=== PATIENT | male | born 1995 | race Caucasian/White ===

== ENCOUNTER 2023-08-17 16:30 | Emergency (ER) | payer OTHER, SELFPAY ==
[2023-08-17 16:31] VITALS: BP 153/102; PULSE 60; RESP 18; TEMP 36.1; O2SAT 100; BMI 36.8
--- NOTE | 2023-08-17 20:41 | ED.VIS.DENTA ---
HPI History of Present Illness Chief Complaint: Dental Detail of Chief Complaint: Dental pain Informant: patient Narrative Narrative: Patient presents emergency department complaint dental pain for the last 2 days. Patient states that he has very poor dentition and has multiple broken and carried teeth. Complains of pain mostly to the left lower and upper dentition. He denies fevers or chills or sweats. Patient was seen at urgent care earlier and was prescribed amoxicillin but they did not give him anything for pain. Patient does not see a dentist. PFSH PFSH Medical History no medical history Home Medications ?Medication ?Instructions ?Recorded ?Last Taken ?Type hydrocodone-acetaminophen 5-325mg 1 tab PO Q4H PRN PRN Pain 2 days 08/17/23 Unknown Rx 5mg-325mg #15 TABLETS Allergy/AdvReac Type Severity Reaction Status Date / Time No Known Allergies Allergy Verified 08/17/23 16:32 ROS ROS ED Review of Systems ROS Unobtainable: other Constitutional Constitutional ED: Reports lethargy; Denies chills, fever(s), sweats or weight loss Eyes Eyes: Denies blurry vision, change in vision or diplopia ENT ENT ED: Reports other Details: Dental pain ; Denies rhinorrhea or sore throat Cardiovascular Cardiovascular: Denies chest pain, orthopnea or racing heartbeat Respiratory/Chest Respiratory/Chest: Denies cough, dyspnea, dyspnea on exertion, orthopnea or sputum Gastrointestinal Gastrointestinal: Denies abdominal pain, diarrhea, nausea or vomiting Genitourinary Genitourinary ED: Denies dysuria, hematuria or urinary frequency Musculoskeletal Musculoskeletal: Denies arthralgias, back pain, myalgias or neck pain Integumentary Denies abscess, Abrasions or rash Neurologic Neurologic: Denies headache(s) or weakness Psychiatric Psychiatric: Denies anxiety, depression or suicidal thoughts Endocrine Endocrinology: Denies polydipsia, polyphagia or polyuria Hematologic/Lymphatic Hematologic/Lymphatic: Denies easy bleeding, easy bruising or lymphadenopathy Allergic/Immunologic Allergic/Immunologic ED: Denies mouth swelling, tongue swelling or urticaria EXAM Physical Exam Const Vital Signs: 08/17/23 16:31 Temperature 96.9 F L Temperature Source Temporal Pulse Rate 60 Respiratory Rate 18 Blood Pressure 153/102 H Blood Pressure Mean 119 Pulse Ox 100 Oxygen Delivery Method Room Air Positive well nourished and well developed General Appearance ED: well developed and NAD HEENT Reports TM's clear and moist mucous membranes HEENT Narrative: Dentition-patient has very poor dentition with multiple broken teeth and caries. Teeth are worn down to gumline. Tenderness specifically over tooth #22. No gingival erythema or abscesses noted. There is no facial erythema or cellulitis. No trismus on exam. normocephalic and atraumatic; Negative for trauma or tenderness Tympanic Membrane ED: Yes TM's clear Eyes PERRL and EOMs intact bilaterally General Eye ED: Negative for pale conjunctiva or scleral icterus Neck no lymphadenopathy, supple and no JVD General: Negative for tenderness Chest Wall inspection of chest normal and palpation of chest normal Chest: Negative for tenderness Resp normal respiratory effort and clear to auscultation bilaterally Effort and Inspection: Negative for respiratory distress or pain with movement Auscultation: Negative for rhonchi, wheezes or diminished lung sounds Cardio regular rate, regular rhythm, S1 normal heart sound, S2 normal heart sound and no murmurs Peripheral Pulses: pulses 2+ throughout GI normal to inspection, nondistended, normoactive bowel sounds, soft to palpation, non-tender, non-distended and no masses Back/Spine no CVA tenderness and no thoracic nor lumbar tenderness Extremity normal to inspection General Extremety ED: Negative for edema General Extremity: Negative for edema Neuro oriented x3, CN's II-XII intact bilaterally, no sensory deficits noted and gait normal Sensorium / Orientation: awake, alert, oriented to person, oriented to place and oriented to time Motor Exam: strength 5/5 throughout and strength abnormal Psych mental status grossly normal Skin no rashes or lesions noted and no wounds MDM MDM MDM Narrative Medical decision making narrative: Patient presents with dental pain with multiple dental caries. Has started amoxicillin. I will give him a prescription for [place] for pain and refer to dentist. Discharge Plan Triage Chief Complaint: Dental ED Provider: Linh Heart Dx/Rx/DC Orders Clinical Impression: Pain, dental Instructions: ED Dental Pain Prescriptions: New hydrocodone-acetaminophen 5-325 mg tablet 1 tab PO Q4H PRN PRN (Reason: Pain) 2 Days Qty: 15 0RF Primary Care Provider: Care Physician,No Primary Referrals: Care Physician,No Primary [Primary Care Provider] - Activity Restrictions/Additional Instructions: See a dentist at the earliest possible time. Print Language: Malagasy Disposition Disposition: Home, Self Care
[2023-08-17] MEDS: HYDROcodone Bitartrate/Apap 5/325 Tablet PO (20:46)
[2023-08-17 21:06] VITALS: BP 141/83; PULSE 66; RESP 16; TEMP 36.4; O2SAT 96
== END 2023-08-17 21:08 | disposition home or self-care (01) ==
LOC: ED 20:56
PROVIDERS: Emergency Provider Emergency Medicine; Visit Provider Emergency Medicine
DX: K08.89 Other specified disorders of teeth and supporting structures (principal); K02.9 Dental caries, unspecified
CPT/HCPCS: 99282

== ENCOUNTER 2025-01-16 09:17 | Emergency (ER) | payer OTHER, SELFPAY ==
[2025-01-16 09:17] VITALS: BP 142/56; PULSE 68; RESP 20; TEMP 37; O2SAT 100
--- NOTE | 2025-01-16 09:31 | RAD_ITS ---
PROCEDURE: LUMBAR SPINE 2 OR 3 VIEWS 01/16/2025 REASON FOR EXAM: PAIN, TRAUMA TECHNIQUE: Procedure Code: RADSPLL Modality: DX Procedure: LUMBAR SPINE 2 OR 3 VIEWS COMPARISON: None FINDINGS: Vertebrae: Vertebral heights are well-maintained. Discs: Unremarkable Alignment: Mild levoscoliosis. Other: Moderate amount of fecal material is seen in the colon. RAD/Lumbar Spine 2 or 3 Views IMPRESSION: Mild levoconvex scoliosis. Reading Location: [facility]
--- NOTE | 2025-01-16 09:33 | ED.VIS.BACK ---
HPI History of Present Illness Chief Complaint: Back Informant: patient Onset/Context/Timing Injury: lifting Timing: Continuous Associated Symptoms Associated Symptoms: Radiation to Right Leg and Radiation to Left Leg Narrative Narrative: 29-year-old male, history of previous chronic back pain presents with injury to his low back that has had over the last 3 to 4 days. He states he was trying to lift and move an air hockey table by himself. He denies any loss of bowel or bladder but feels that his bowel movements may be different. He has pain with movement and transfer, and walking. He states that his pain radiates to his anterior thighs. He had some leftover gabapentin that he started taking, 300 mg daily since his initial injury. He and his state that whenever he has a back injury he usually recovers in a few days, but this seems different. [facility] Medical History no medical history Home Medications ?Medication ?Instructions ?Recorded ?Last Taken ?Type gabapentin PO DAILY 01/16/25 Unknown History hydrocodone-acetaminophen 5-325mg 1 tab PO Q6H PRN PRN Pain 3 days 01/16/25 Unknown Rx 5mg-325mg #10 TABLETS naproxen 500 mg tablet 500 mg PO BID PRN #20 tabs 01/16/25 Unknown Rx orphenadrine citrate 100 mg 100 mg PO BID #14 tabs 01/16/25 Unknown Rx tablet,extended release Allergy/AdvReac Type Severity Reaction Status Date / Time No Known Allergies Allergy Verified 08/17/23 16:32 Social History Smoking Status: Never smoker ROS ROS ED ROS Narrative Review of systems positive for low back pain, midline. No loss of bowel or bladder. No fevers or chills. Worse with transfer and walking. Radiation to bilateral anterior thighs. Tightness in back with movement of the leg. EXAM Physical Exam Narrative Exam Narrative: Afebrile. Vital signs noted. Nontoxic-appearing. Cardiovascular semination regular rate and rhythm. Lungs are clear to auscultation bilaterally. Abdomen is soft and nontender without guarding or rebound. Able to lean forward. No vertebral point tenderness or bony step-off of lumbar spine. Diffuse tenderness to palpation in midline. No crepitance. Neurovascularly intact bilateral lower extremities. EHL intact bilaterally. Const Vital Signs: 01/16/25 09:17 Temperature 98.6 F Temperature Source Temporal Pulse Rate 68 Respiratory Rate 20 H Blood Pressure 142/56 H Blood Pressure Mean 84 Pulse Ox 100 Oxygen Delivery Method Room Air MDM MDM MDM Narrative Medical decision making narrative: Differential diagnosis includes but not limited to lumbosacral strain versus vertebral compression fracture versus cauda equina syndrome. He may have more of a bulging disc as well. I have low suspicion because clinically there are no red flags for cauda equina syndrome. In discussion with the patient, he prefers oral analgesics over intramuscular injections. He was administered Norflex, naproxen, and 1 [place] tablet. X-rays were obtained of the lumbar spine and interpreted by myself independently. On my independent interpretation of the x-rays there is no acute fracture. He does have scoliosis. I reviewed the radiology report which confirms my independent interpretation. They also comment on a large amount of stool in the colon. Upon repeat examination, patient lying on the cot comfortably with his legs crossed. He feels improved. I written prescriptions for naproxen and Norflex and for 10 tablets of [place]. I reviewed his [facility] report and he has not had any narcotic pain medications since 2023. At this point in time, I feel he can be discharged to follow-up. He has a follow-up appointment with a primary care provider on Wednesday, 4 days from now. Return instructions to the emergency department were reviewed. Disposition is discharged home in stable condition. History & Record Review Discussion w/independent historian: Patient Radiography X-Ray: LS SPine, Read by ED Physician, Read by Radiologist and No Fracture Diagnostic Testing: Clinical Impression(s) from Imaging Studies Lumbar Spine X-Ray 01/16/25 09:31 IMPRESSION: Mild levoconvex scoliosis. Reading Location: [facility] Discharge Plan Triage Chief Complaint: Back ED Provider: Kong Green Dx/Rx/DC Orders Clinical Impression: Lumbosacral strain, Scoliosis Instructions: ED Back Pain (Acute or Chronic), ED Back Sprain/Strain Prescriptions: New orphenadrine citrate 100 mg tablet extended release 100 mg PO BID Qty: 14 0RF hydrocodone-acetaminophen 5-325 mg tablet 1 tab PO Q6H PRN PRN (Reason: Pain) 3 Days Qty: 10 0RF naproxen 500 mg tablet 500 mg PO BID PRN Qty: 20 0RF No Action gabapentin PO DAILY Primary Care Provider: Care Physician,No Primary Referrals: Care Physician,No Primary [Primary Care Provider, Medical] Activity Restrictions/Additional Instructions: Follow-up with your primary care provider as scheduled on Wednesday. You may want to start an [id number] stool softener or gentle laxative. Beware of nausea, vomiting, constipation, drowsiness, and addiction with the use of narcotic pain medication. Use the narcotic more for breakthrough pain and try not to use in combination with muscle relaxer. Print Language: Vietnamese Disposition Disposition: Home, Self Care
[2025-01-16] MEDS: HYDROcodone Bitartrate/Apap 5/325 Tablet PO (10:05)
[2025-01-16] MEDS: Orphenadrine 100 MG Tablet PO (10:05)
[2025-01-16 11:34] VITALS: BP 128/89; PULSE 74; RESP 16; TEMP 36.7; O2SAT 100
--- NOTE | 2025-01-16 18:41 | CM.ED ---
Social Work Reason for visit: No PCP SW met with patient who stated he kind of has a PCP through his job. SW offered [facility] provider list, patient stated he would like the list in case he wanted to change physicians. No further needs at this time . Araceli Multani, MANAGER PART, DINING ROOM C[employer]IER
== END 2025-01-16 11:34 | disposition home or self-care (01) ==
PROVIDERS: Emergency Provider Emergency Medicine; Visit Provider Emergency Medicine
DX: S39.012A Strain of muscle, fascia and tendon of lower back, initial encounter (principal); X50.0XXA Overexertion from strenuous movement or load, initial encounter; G89.29 Other chronic pain; M41.9 Scoliosis, unspecified
CPT/HCPCS: 72100; 99282